=== PATIENT | male | born 1995 | race Caucasian/White ===

== ENCOUNTER 2024-10-13 16:41 | Emergency (ER) | payer SELFPAY ==
[2024-10-13] MEDS ORDERED: NA CHLORIDE 0.9% 1,000 ML ONE (19:22)
[2024-10-13 21:27] LABS: Absolute Basophils 0.1 K/uL (0-0.5); Absolute Eosinophils 0.2 K/uL (0-0.5); Absolute Lymphocytes (CBC) 4.3 K/uL (0.7-4.9); Absolute Monocytes 1.4 K/uL (0.1-1.3); Absolute Neutrophil 10.7 K/uL (1.8-8.0); Basophils % 0.7 % (0-1.3); Eosinophils % 1.2 % (0-4.4); Hematocrit 38.1 % (39.6-49.0); Hemoglobin 12.2 g/dL (13.6-17.9); Lymphocytes % 25.5 % (15.3-44.8); MCH 18.5 pg (27.0-35.0); MCHC 31.9 g/dL (32.0-36.0); MPV 9.1 fL (7.6-11.3); Monocytes % 8.5 % (3.3-12.3); Neutrophils % 64.1 % (41.7-73.7); Nucleated Red Blood Cells % 0.1 % (0-0); Platelets 271 thou/uL (152-406); RBC Red Blood Cell Count 6.58 M/uL (4.33-5.43); Red Cell Distribution Width 15.9 % (12.1-15.2)
[2024-10-13 21:43] LABS: Albumin 4.2 g/dL (3.4-5.0); Anion Gap 11.7 mEq/L (5.0-15.0); Bilirubin Total 1.2 mg/dL (0.2-1.0); Globulin 4.4 g/dL (2.3-3.5); Potassium 3.7 mEq/L (3.5-5.1); Protein, Total 8.6 g/dL (6.4-8.2)
[2024-10-13 22:17] LABS: Blood Morphology Comment NOTED (NOT SEEN); Microcytosis 3+; Ovalocytes 2+; Platelet Estimate ADEQ; Polychromasia 1+; Teardrop Cell 2+; White Blood Cell Scan OK (OK)
--- NOTE | 2024-10-13 22:18 | ER ---
Nurse's Notes [facility] Name: Tye Floyd Age: 28 yrs Sex: Male : 1995 Arrival Date: 10/13/2024 Time: 16:41 Bed 12 Private MD: Diagnosis: Cellulitis of right lower limb Presentation: 10/13 17:46 Chief complaint: Patient states: redness and swelling to right lower leg, bilateral rib cm10 pain that is described as spasms onset 2 days ago. Pt states "I just feel dehydrated.". Coronavirus screen: Client denies travel out of the [place] in the last 14 days. Ebola Screen: Patient denies travel to an Ebola-affected area in the 21 days before illness onset. Initial Sepsis Screen: Does the patient meet any 2 criteria? HR > 90 bpm. Does the patient have a suspected source of infection? No. Patient's initial sepsis screen is negative. Risk Assessment: Do you want to hurt yourself or someone else? Patient reports no desire to harm self or others. Onset of symptoms. 17:46 Method Of Arrival: Ambulatory cm10 17:46 Acuity: TOMEKA 3 cm10 Triage Assessment: 17:49 General: Appears in no apparent distress. uncomfortable, Behavior is calm, cooperative. cm10 Pain: Complains of pain in right lateral anterior chest, left lateral anterior chest and right pressley Pain currently is 7 out of 10 on a pain scale. Neuro: No deficits noted. Level of Consciousness is awake, alert, obeys commands, Oriented to person, place, time, situation, Appropriate for age. Respiratory: No deficits noted. Airway is patent Respiratory effort is even, unlabored, Respiratory pattern is regular, symmetrical. Historical: - Allergies: 17:48 Codeine (Itchy); cm10 - Home Meds: 17:48 None [Active]; cm10 - PMHx: 17:48 None; cm10 - PSHx: 17:48 None; cm10 - Immunization history:: Adult Immunizations up to date. - Infectious Disease History:: Denies. - Social history:: Smoking status: Reported history of juuling and/or vaping. Assessment: 19:53 Reassessment: Patient and/or family updated on plan of care and expected duration. Pain br2 level reassessed. Patient is alert, oriented x 3, equal unlabored respirations, skin warm/dry/pink. General: Appears in no apparent distress. comfortable, Behavior is calm, cooperative. Derm: Skin is intact, is healthy with good turgor, Skin is dry, Skin is red, Skin temperature is warm Rash noted that is red, on right pressley Reports burning, itching, pain that is 5 out of 10 on a pain scale. 21:40 Reassessment: Patient and/or family updated on plan of care and expected duration. Pain br2 level reassessed. Patient is alert, oriented x 3, equal unlabored respirations, skin warm/dry/pink. Patient states feeling better. Vital Signs: 17:46 BP 138 / 89; Pulse 107; Resp 18; Temp 99.1; Pulse Ox 99% on R/A; Weight 108.86 kg; cm10 Height 5 ft. 9 in. ; Pain 7/10; 17:46 Body Mass Index 35.44 (108.86 kg, 175.26 cm) cm10 17:46 Pain Scale: Adult cm10 ED Course: 16:44 Patient arrived in ED. im 17:04 Yoav Lu MD is Attending Physician. jj9 17:48 Triage completed. cm10 17:49 Arm band placed on right wrist. Patient placed in waiting room. cm10 19:52 Jessica Franco, RN is Primary Nurse. br2 19:53 Inserted saline lock: 20 gauge in right antecubital area, using aseptic technique. br2 Blood collected. Flushed with 10 mL NS. 20:03 Attending Physician role handed off by Yoav Lu MD gb1 20:03 Lay Tolbert MD is Attending Physician. gb1 21:20 CBC with Diff Sent. br2 21:20 CMP Sent. br2 22:27 No provider procedures requiring assistance completed. IV discontinued, intact, br2 bleeding controlled, No redness/swelling at site. Pressure dressing applied. Administered Medications: 19:54 Drug: NS 0.9% IV 1000 ml IV at 1 bolus Per protocol; to be given as a bolus over 60 br2 minutes Route: IV; Rate: 1 bolus; Site: right antecubital; 21:00 Follow up: IV Status: Completed infusion; IV Intake: 1000ml br2 Intake: 21:00 IV: 1000ml; Total: 1000ml. br2 Outcome: 22:18 Discharge ordered by . gb1 22:27 Discharged to home ambulatory, br2 22:27 Condition: good 22:27 Discharge instructions given to patient, Instructed on discharge instructions, follow up and referral plans. Demonstrated understanding of instructions, follow-up care, medications, Prescriptions given X 1, 22:31 Patient left the ED. br2 Signatures: Elida Mendes Clarissa, RN RN cm10 Lay Tolbert MD MD gb1 Jessica Franco RN RN br2 Yoav Lu MD MD jj9 Corrections: (The following items were deleted from the chart) 17:49 17:48 Allergies: No Known Allergies; cm10 cm10
--- NOTE | 2024-10-13 22:18 | EDPHYS ---
Physician Documentation [facility] Name: Tye Floyd Age: 28 yrs Sex: Male : 1995 Arrival Date: 10/13/2024 Time: 16:41 Bed 12 Private MD: ED Physician Lay Tolbert HPI: 10/13 18:11 28-year-old man comes emergency department complaining of redness to chest below the jj9 knee tibial area for the last 2 days with mild erythema and tenderness. The patient denies any knee problems he has full range of motion he is fully ambulatory denies fever chills nausea vomiting or any other problems.. Historical: - Allergies: 17:48 Codeine (Itchy); cm10 - Home Meds: 17:48 None [Active]; cm10 - PMHx: 17:48 None; cm10 - PSHx: 17:48 None; cm10 - Immunization history:: Adult Immunizations up to date. - Infectious Disease History:: Denies. - Social history:: Smoking status: Reported history of juuling and/or vaping. ROS: 18:12 Constitutional: Negative for fever, chills, and weight loss, Eyes: Negative for injury, jj9 pain, redness, and discharge, ENT: Negative for injury, pain, and discharge, Neck: Negative for injury, pain, and swelling, Cardiovascular: Negative for chest pain, palpitations, and edema, Respiratory: Negative for shortness of breath, cough, wheezing, and pleuritic chest pain, Abdomen/GI: Negative for abdominal pain, nausea, vomiting, diarrhea, and constipation, Back: Negative for injury and pain, MS/Extremity: Negative for injury and deformity, Skin: Redness to the right pressley area. Neuro: Negative for headache, weakness, numbness, tingling, and seizure, Psych: Negative for depression, anxiety, suicide ideation, homicidal ideation, and hallucinations, Allergy/Immunology: Negative for hives, rash, and allergies, Endocrine: Negative for neck swelling, polydipsia, polyuria, polyphagia, and marked weight changes, Hematologic/Lymphatic: Negative for swollen nodes, abnormal bleeding, and unusual bruising, Exam: 18:12 Constitutional: This is a well developed, well nourished patient who is awake, alert, jj9 and in no acute distress. Head/Face: Normocephalic, atraumatic. Eyes: Pupils equal round and reactive to light, extra-ocular motions intact. Lids and lashes normal. Conjunctiva and sclera are non-icteric and not injected. Cornea within normal limits. Periorbital areas with no swelling, redness, or edema. ENT: Nares patent. No nasal discharge, no septal abnormalities noted. Tympanic membranes are normal and external auditory canals are clear. Oropharynx with no redness, swelling, or masses, exudates, or evidence of obstruction, uvula midline. Mucous membranes moist. Neck: Trachea midline, no thyromegaly or masses palpated, and no cervical lymphadenopathy. Supple, full range of motion without nuchal rigidity, or vertebral point tenderness. No Meningismus. Chest/axilla: Normal chest wall appearance and motion. Nontender with no deformity. No lesions are appreciated. Cardiovascular: Regular rate and rhythm with a normal S1 and S2. No gallops, murmurs, or rubs. Normal PMI, no JVD. No pulse deficits. Respiratory: Lungs have equal breath sounds bilaterally, clear to auscultation and percussion. No rales, rhonchi or wheezes noted. No increased work of breathing, no retractions or nasal flaring. Abdomen/GI: Soft, non-tender, with normal bowel sounds. No distension or tympany. No guarding or rebound. No evidence of tenderness throughout. Back: No spinal tenderness. No costovertebral tenderness. Full range of motion. Skin: There is see small area of induration below the right knee tibial area no obvious fluctuation mild surrounding erythema tender to palpation. MS/ Extremity: Pulses equal, no cyanosis. Neurovascular intact. Full, normal range of motion. Neuro: Awake and alert, GCS 15, oriented to person, place, time, and situation. Cranial nerves II-XII grossly intact. Motor strength 5/5 in all extremities. Sensory grossly intact. Cerebellar exam normal. Normal gait. Psych: Awake, alert, with orientation to person, place and time. Behavior, mood, and affect are within normal limits. Vital Signs: 17:46 BP 138 / 89; Pulse 107; Resp 18; Temp 99.1; Pulse Ox 99% on R/A; Weight 108.86 kg; cm10 Height 5 ft. 9 in. ; Pain 7/10; 17:46 Body Mass Index 35.44 (108.86 kg, 175.26 cm) cm10 17:46 Pain Scale: Adult cm10 MDM: 17:10 Medical Screening Exam initiated [facility] 22:16 Data reviewed: vital signs, nurses notes, lab test result(s), CBC, electrolytes. ED gb1 course: 28-year-old male with a right lower extremity anterior cellulitis. Patient has some localized erythema with mild tenderness. His heart rate is 94 in the room and his white count elevated at 16,000 he is afebrile at 99.1. I will discharge him home with Bactrim for staph MRSA coverage. I have given him explicit return precautions to include if he is vomiting his medicines, if he gets a fever or otherwise the redness is spreading upward or downward of his leg to return to the emergency department. At this time his compartment is soft doubt compartment syndrome. He is compliant with his plan of care at time of discharge. Patient states he has no drug allergies other than an allergic itch reaction with codeine.. 10/13 17:55 Order name: CBC with Diff; Complete Time: 22:19 [facility] 10/13 17:55 Order name: CMP; Complete Time: 22:07 [facility] 10/13 21:31 Order name: CBC Smear Scan; Complete Time: 22:19 EDMS Administered Medications: 19:54 Drug: NS 0.9% IV 1000 ml IV at 1 bolus Per protocol; to be given as a bolus over 60 br2 minutes Route: IV; Rate: 1 bolus; Site: right antecubital; 21:00 Follow up: IV Status: Completed infusion; IV Intake: 1000ml br2 Disposition Summary: 10/13/24 22:18 Discharge Ordered Notes: Location: Home gb1 Problem: new gb1 Symptoms: have improved gb1 Condition: Stable gb1 Diagnosis - Cellulitis of right lower limb gb1 Followup: gb1 - With: Emergency Department - When: - Reason: If symptoms return Discharge Instructions: - Discharge Summary Sheet gb1 - Cellulitis, Adult gb1 Forms: - Medication Reconciliation Form gb1 - Antibiotic Education gb1 - Prescription Opioid Use gb1 - Patient Portal Instructions gb1 - Leadership Thank You Letter gb1 Prescriptions: - Bactrim DS 800-160 mg Oral Tablet - take 1 tablet ORAL route every 12 hours for 10 days; 20 tablet; Refills: 0, gb1 Product Selection Permitted Signatures: Dispatcher [employer] Miriam Zuniga RN RN cm10 Lay Tolbert MD MD gb1 Jessica Franco RN RN br2 Yoav Lu MD MD jj9 Corrections: (The following items were deleted from the chart) 17:49 17:48 Allergies: No Known Allergies; cm10 cm10
[2024-10-13 22:49] VITALS: BP 138/89; TEMP 99.1; O2SAT 99
== END 2024-10-13 22:31 | disposition home or self-care (01) ==
LOC: ER 16:41
DX: L03.115 Cellulitis of right lower limb (principal)
CPT/HCPCS: 36415; 80053; 85025; 96360; 99284; J7030